=== PATIENT | female | born 1960 | race Asian ===

== ENCOUNTER 2020-01-26 12:41 | Emergency (ER) | payer OTHER ==
[~2020-01-26] VITALS: Ht 167.6 cm; Wt 74.8 kg
[2020-01-26 12:52] VITALS: BP 114/66
--- NOTE | 2020-01-26 13:12 | NUR ---
PATIENT WHEELCHAIR ASSISTED TO BED 6.
--- NOTE | 2020-01-26 13:26 | NUR ---
60/F bib daughter assisted to bed via w/c complains of bilateral hip pain, facial pain s/p fall. Pt states she was on a ladder and fell approximately 9 feet. Pt states she had a near syncopal prior to fall. Pt denies losing conciousness. Patient has swelling to both facial cheeks and abrasions. No deformity present. No shortening or external rotation noted to either lower extremitiies. CMS intact. Swelling and hematoma to right lower leg. Pt unable to ambulate d/t pain at this time. Denies any medical hx. Denies home medications. Pt c/o 02/23 aching pain to bilateral hips. VSS at this time.
--- NOTE | 2020-01-26 13:29 | NUR ---
Pt report given to Gen CORREIA. Transfer of care at this time.
--- NOTE | 2020-01-26 13:31 | NUR ---
RAD AT BEDSIDE
--- NOTE | 2020-01-26 13:39 | NUR ---
PT TAKEN TO RAD VIA WC
[2020-01-26 14:58] VITALS: BP 114/66
== END 2020-01-26 14:58 | disposition home or self-care (01) ==
LOC: MED 12:41
DX: M79.81 Nontraumatic hematoma of soft tissue (principal); M54.6 Pain in thoracic spine; Z98.890 Other specified postprocedural states; W19.XXXA Unspecified fall, initial encounter; Y93.89 Activity, other specified; Y92.89 Other specified places as the place of occurrence of the external cause; Y99.8 Other external cause status
CPT/HCPCS: 70150; 72170; 99284; Q0092